=== PATIENT | male | born 1950 | race Caucasian/White ===

== ENCOUNTER 2016-04-20 05:58 | Day surgery (SDC) | payer BC ==
--- NOTE | ~2016-04-20 | EGD ---
EGD REPORT [facility] [address] [address] NAME: PEPITO CASTRO : [birth year] STATUS : REG [facility] PAT#: [id number] AGE: 65 ADM/REG DATE : 04/20/16 MR#: [id number] REPORT SERV DATE: 04/20/16 DICTATED BY: JORDIN GARCIA DATE: 04/20/16 REPORT STATUS : Draft TRANSCRIBED BY: [employer] DATE: 04/20/16 [facility] Center Patient Name: Pepito Castro Date of : 1950 Attending MD: JORDIN GARCIA MD Procedure Date No Time: 04/20/2016 Procedure: Upper GI endoscopy Indications: Cirrhosis rule out esophageal varices Referring MD: CONNER ALBERTS Medicines: See the Anesthesia note for documentation of the administered medications Complications: No immediate complications. Procedure: Pre-Anesthesia Assessment: - ASA Grade Assessment: II - A patient with mild systemic disease. After obtaining informed consent, the endoscope was passed under direct vision. Throughout the procedure, the patient's blood pressure, pulse, and oxygen saturations were monitored continuously. The GIF [id number] was introduced through the mouth, and advanced to the second part of duodenum. The upper GI endoscopy was accomplished without difficulty. The patient tolerated the procedure well. Findings: The examined duodenum was normal. Mild inflammation was found in the gastric antrum. Biopsies were taken with a cold forceps for histology. The cardia and gastric fundus were normal on retroflexion. A small hiatus hernia was present. No varices Impression: - Normal examined duodenum. - Gastritis. Biopsied. - Hiatus hernia. - No varices Recommendation: - Patient has a contact number available for emergencies. The signs and symptoms of potential delayed complications were discussed with the patient. Return to normal activities tomorrow. Written discharge instructions were provided to the patient. - Regular diet. - Continue present medications. - Repeat the upper endoscopy in 3 years for surveillance. EGD REPORT [address] [place]. [address] NAME: PEPITO CASTRO : [birth year] STATUS : REG [facility]#: [id number] AGE: 65 ADM/REG DATE : 04/20/16 MR#: [id number] REPORT SERV DATE: 04/20/16 DICTATED BY: JORDIN GARCIA DATE: 04/20/16 REPORT STATUS : Draft TRANSCRIBED BY: [employer] DATE: 04/20/16 Procedure Code(s): --- Professional --- 99414, Esophagogastroduodenoscopy, flexible, transoral; with biopsy, single or multiple Diagnosis Code(s): --- Professional --- K29.70, Gastritis, unspecified, without bleeding K44.9, Diaphragmatic hernia without obstruction or gangrene K74.60, Unspecified cirrhosis of liver CPT copyright 2013 [employer]. All rights reserved. The codes documented in this report are preliminary and upon marine railway operator review may be revised to meet current compliance requirements. Jordin Garcia MD JORDIN GARCIA MD 04/20/2016 7:40 AM This report has been signed electronically. Number of Addenda: 0 Note Initiated On: 04/20/2016 7:24 AM Scope Withdrawal Time 0 hours 0 minutes 0 seconds
[~2016-04-20 05:58] MED LIST: ALLEGRA180 PO; ASAB PO; BETA-VAL0.1 % TOP; COREG6 PO; DIOV80 PO; KAPIDEX60 MG PO; LIPITOR10 PO; NEXIUM40 PO; NITROSPRAY SL; NORV5 PO; OCEAN NAS; TEMOVATE CREAM30 GM TOP
== END 2016-04-20 23:59 | disposition home or self-care (01) ==
LOC: DMU 05:58
PROVIDERS: Internal Medicine Gastroenterology
PROC: 0DB68ZX Excision of Stomach, Via Natural or Artificial Opening Endoscopic, Diagnostic (ICD-10-PCS; principal; 2016-04-20 08:30)
DX: K29.70 Gastritis, unspecified, without bleeding (principal); K44.9 Diaphragmatic hernia without obstruction or gangrene; K74.60 Unspecified cirrhosis of liver; K21.9 Gastro-esophageal reflux disease without esophagitis; Z86.19 Personal history of other infectious and parasitic diseases; Z88.0 Allergy status to penicillin; Z88.5 Allergy status to narcotic agent; Z87.891 Personal history of nicotine dependence; Z98.890 Other specified postprocedural states; Z90.89 Acquired absence of other organs; Z85.828 Personal history of other malignant neoplasm of skin; Z79.899 Other long term (current) drug therapy
CPT/HCPCS: 88305